=== PATIENT | female | born 1945 | race Caucasian/White ===

== ENCOUNTER 2016-09-11 03:37 | Emergency (ER) | payer BC ==
[~2016-09-11] VITALS: Ht 165.1 cm; Wt 73.6 kg
[~2016-09-11 03:37] MED LIST: DIAZEPAM10 MG PO; LIPITOR20 MG PO; NEXIUM40 MG PO; OXYCODONE15 MG PO; OXYCONTIN40 MG PO
[2016-09-11] MEDS ORDERED: OMEPRAZOLE40 M1 PO (04:03)
[2016-09-11] MEDS ORDERED: HYZAAR 100-11 TABLET PO (04:03)
[2016-09-11] MEDS ORDERED: PRAVACHOL80 MG PO (04:05)
[2016-09-11] MEDS ORDERED: GLUCOPHAGE500 MG PO (04:05)
[2016-09-11] MEDS ORDERED: DURLAZA162.5 MG PO (04:05)
[2016-09-11] MEDS ORDERED: CALCIUM 500 +1 EACH PO (04:06)
[2016-09-11] MEDS ORDERED: PROBIOTIC1 EAC1 PO (04:06)
[2016-09-11] MEDS ORDERED: PRESERVISION T1 EACH PO (04:06)
[2016-09-11 04:09] LABS: HEMATOCRIT 39.8 % (36.0-46.0); MCHC 33.7 G/DL (30.0-36.0); MCV 89.2 FL (83-99); MEAN PLAT.VOLUME 9.7 uM^3 (9.5-12.4); PLATELET COUNT 239 K/uL (156-360); RBC DIS.WIDTH-CV 13.3 % (11.8-14.6); RBC DIS.WIDTH-SD 43.5 % (39-53); RED BLOOD COUNT 4.46 M/uL (3.80-5.20); WHITE BLOOD COUNT 5.3 K/uL (4.1-10.2)
[2016-09-11 04:22] LABS: CHLORIDE 105 mEq/L (99-109); POTASSIUM 3.9 mEq/L (3.7-5.4); SODIUM 140 mEq/L (136-147)
[2016-09-11 04:23] LABS: GLUCOSE 129 mg/dL (70-99)
[2016-09-11 04:25] LABS: ANION GAP 12 MEQ/L (2-14)
[2016-09-11 04:27] LABS: GFR ESTIMATE (CALCULATED) > 59 mL/min/
[2016-09-11 04:28] LABS: UREA NITROGEN (BUN) 22 mg/dL (9-23)
[2016-09-11 04:34] LABS: TROP-I INTERPRETATION NEGATIVE; TROPONIN-I < 0.01 ng/mL (0.0-0.30)
[2016-09-11] MEDS ORDERED: AZITHROMYCIN250 MG1 PO (04:50)
[2016-09-11] MEDS ORDERED: TESSALON PERLE100 MG PO (04:50)
[2016-09-11 05:06] VITALS: BP 134/82
== END 2016-09-11 05:15 | disposition home or self-care (01) ==
LOC: EME 03:37
PROVIDERS: Emergency Medicine
DX: J20.9 Acute bronchitis, unspecified (principal); R91.1 Solitary pulmonary nodule; I10 Essential (primary) hypertension; E11.9 Type 2 diabetes mellitus without complications; Z79.84 Long term (current) use of oral hypoglycemic drugs; Z95.5 Presence of coronary angioplasty implant and graft; Z79.82 Long term (current) use of aspirin
CPT/HCPCS: 71020; 80048; 84484; 85027; 93005; 99281; 99284

== ENCOUNTER → 2016-11-16 | Outpatient (CLI) | payer OTHER, BC ==
[~2016-11-16] MED LIST changes: +AZITHROMYCIN250 MG1 PO; +CALCIUM 500 +1 EACH PO; +DURLAZA162.5 MG PO; +GLUCOPHAGE500 MG PO; +HYZAAR 100-11 TABLET PO; +OMEPRAZOLE40 M1 PO; +PRAVACHOL80 MG PO; +PRESERVISION T1 EACH PO; +PROBIOTIC1 EAC1 PO; +TESSALON PERLE100 MG PO
== END | disposition home or self-care (01) ==
LOC: NUC 09:55
DX: R06.02 Shortness of breath (principal)
CPT/HCPCS: 71020; 78582; A9540; A9567

== ENCOUNTER 2016-11-24 09:00 | Observation (INO) | payer OTHER, BC ==
[~2016-11-24] VITALS: Ht 165.1 cm; Wt 67.3 kg
[~2016-11-24 09:00] MED LIST changes: +ASPIRIN81 M2 PO; -DURLAZA162.5 MG PO
[2016-11-24 09:48] LABS: EOSINOPHIL (%) 1.2 % (0-5); EOSINOPHIL COUNT 0.1 K/uL (0-0.3); HEMATOCRIT 42.4 % (36.0-46.0); IMMATURE GRANULOCYTE (%) 0.6 % (0.0-0.7); INSTRUMENT ABS NEUTROPHIL CT 4.8 K/uL; LYMPHOCYTE COUNT 1.1 K/uL (1.0-2.8); MCH 29.8 PG (29.0-34.0); MCHC 33.5 G/DL (30.0-36.0); MCV 88.9 FL (83-99); MEAN PLAT.VOLUME 10.3 uM^3 (9.5-12.4); MONOCYTE COUNT 0.5 K/uL (0-0.8); NEUTROPHIL (%) 72.9 % (45-76); NEUTROPHIL COUNT 4.8 K/uL (1.8-6.4); PLATELET COUNT 231 K/uL (156-360); RBC DIS.WIDTH-CV 13.3 % (11.8-14.6); RBC DIS.WIDTH-SD 43.1 % (39-53); RED BLOOD COUNT 4.77 M/uL (3.80-5.20); WHITE BLOOD COUNT 6.6 K/uL (4.1-10.2)
[2016-11-24 09:59] LABS: CHLORIDE 105 mEq/L (99-109); SODIUM 141 mEq/L (136-147)
[2016-11-24 10:01] LABS: GLUCOSE 149 mg/dL (70-99)
[2016-11-24 10:02] LABS: ANION GAP 13 MEQ/L (2-14)
[2016-11-24 10:04] LABS: GFR ESTIMATE (CALCULATED) > 59 mL/min/
[2016-11-24 10:05] LABS: UREA NITROGEN (BUN) 21 mg/dL (9-23)
[2016-11-24 10:11] LABS: TROP-I INTERPRETATION NEGATIVE; TROPONIN-I < 0.01 ng/mL (0.0-0.30)
[2016-11-24] MEDS ORDERED: CRESTOR20 MG PO (11:15)
[2016-11-24] MEDS ORDERED: VENTOLIN HFA18 GM IH (11:15)
[2016-11-24] MEDS ORDERED: COLACE100 MG PO (11:15)
[2016-11-24 14:54] LABS: TROP-I INTERPRETATION NEGATIVE; TROPONIN-I < 0.01 ng/mL (0.0-0.30)
[2016-11-24 16:08] VITALS: BP 129/58
[2016-11-24 17:42] LABS: POINT-OF-CARE METER ID UU13113700
[2016-11-24 20:12] VITALS: BP 127/60
[2016-11-24 22:07] LABS: TROP-I INTERPRETATION NEGATIVE; TROPONIN-I < 0.01 ng/mL (0.0-0.30)
[2016-11-24 22:37] LABS: POINT-OF-CARE METER ID UU13113831
[2016-11-24 23:29] VITALS: BP 109/52
[2016-11-25 04:02] VITALS: BP 110/54
[2016-11-25 07:59] VITALS: BP 133/64
[2016-11-25 08:12] LABS: POINT-OF-CARE METER ID UU13113700
[2016-11-25 12:15] LABS: POINT-OF-CARE METER ID UU13113819
== END 2016-11-25 15:35 | disposition home or self-care (01) ==
LOC: EME 09:00 → EDOF 11:00 → 5WEST 11:00 → ENRESERV 11:02 → 5WEST 15:53 → ENRESERV 11-25 10:24 → 5WEST 11-25 15:35
PROVIDERS: Emergency Medicine; Hospitalist; Internal Medicine
DX: R07.9 Chest pain, unspecified (principal); R06.02 Shortness of breath; R94.39 Abnormal result of other cardiovascular function study; I25.10 Atherosclerotic heart disease of native coronary artery without angina pectoris; Z95.5 Presence of coronary angioplasty implant and graft; I10 Essential (primary) hypertension; E78.5 Hyperlipidemia, unspecified; E11.9 Type 2 diabetes mellitus without complications; Z79.4 Long term (current) use of insulin; Z79.82 Long term (current) use of aspirin; Z82.49 Family history of ischemic heart disease and other diseases of the circulatory system
CPT/HCPCS: 71010; 80048; 82948; 84484; 85025; 93005; 99281; 99285; C1769; C1887; G0378; J1200; J1644; J1650; J2250; J2765; J2930; J3010